=== PATIENT | male | born 1995 | race Caucasian/White ===

== ENCOUNTER 2021-02-13 22:42 | Emergency (ER) | payer MEDICAID, SELFPAY ==
--- NOTE | ~2021-02-13 | XR_ITS ---
EXAMINATION: XR HAND, RIGHT CLINICAL INFORMATION: injury, pain, fifth digit COMPARISON: None TECHNIQUE: PA, lateral, and oblique views of the right hand. FINDINGS: The bones and soft tissues are normal. No fracture. Alignment is anatomic. Joint spaces are maintained. No erosions or soft tissue calcifications. XR/XR hand RT min 3V IMPRESSION: Normal right hand.
[2021-02-13 23:37] VITALS: BP 122/70; PULSE 89; RESP 14; TEMP 36.9; O2SAT 100; BMI 23.8
--- NOTE | 2021-02-14 00:53 | ED_ITS ---
HPI - Extremity Problem General Chief complaint: Extremity Injury, Upper Stated complaint: Wrist pain Time Seen by Provider: 02/14/21 00:18 Source: patient Mode of arrival: ambulatory Limitations: no limitations History of Present Illness HPI Narrative: Patient injured his right 5th finger while playing basketball c jeanne with flexion deformity of distal phalanx no other injuries Related Data Allergies Allergy/AdvReac Type Severity Reaction Status Date / Time No Known Allergies Allergy Verified 02/13/21 23:39 Review of Systems Review of Systems: Yes all other systems are reviewed and are negative COUNT INCLUDES [facility] Social History Social History Advance Directives: No Physical Exam Vital Signs: Vital Signs: Last Vital Signs Temp 98.5 F 02/13/21 23:37 Pulse 89 02/13/21 23:37 Resp 14 02/13/21 23:37 BP 122/70 02/13/21 23:37 Pulse Ox 100 02/13/21 23:37 Body Mass Index 23.8 Const: General: comfortable and no acute distress Extrem: Hand/finger images: 1. Flexion deformity of distal phalanx of right 5th finger no bony tenderness neurovascular intact Procedures Orthopedic Splinting/Casting Injury #1: Side: right Upper Extremity Injury Location: finger (Fifth finger of right hand) Upper Extremity Immobilizer: aluminum form splint MDM - Extremity (Nontraumatic) MDM Narrative Medical decision making narrative: Patient with flexion strain of right 5th fin fidencio secondary to spasm of flexor digitorum superficialis x-ray negative for fracture finger splint applied advised follow-up with PCP Discharge Plan Discharge Clinical Impression: Finger sprain Qualifiers: Encounter type: initial encounter Finger: little finger Sprain of finger site: interphalangeal joint Laterality: right Qualified Code(s): S63.636A - Sprain of interphalangeal joint of right little finger, initial encounter Patient Disposition: Home, Self-Care Instructions: Finger Sprain (ED) Additional Instructions: Wear the splint until finger heals completely Ibuprofen for pain as needed
== END 2021-02-14 01:03 | disposition home or self-care (01) ==
PROVIDERS: Emergency Provider Internal Medicine; PCP Internal Medicine
DX: S63.636A Sprain of interphalangeal joint of right little finger, initial encounter (principal); W21.05XA Struck by basketball, initial encounter; Y93.67 Activity, basketball; Y92.310 Basketball court as the place of occurrence of the external cause; Y99.9 Unspecified external cause status
CPT/HCPCS: 29130; 73130; 99283

== ENCOUNTER 2021-11-27 17:45 | Emergency (ER) | payer MEDICAID, SELFPAY | END 2021-11-27 20:48 | disposition left against medical advice (07) | PROVIDERS: Emergency Provider Emergency Medicine | DX: M54.2 Cervicalgia (principal) ==

== ENCOUNTER 2023-02-28 16:54 | Emergency (ER) | payer MEDICAID, SELFPAY ==
[2023-02-28 17:09] VITALS: BP 121/74; PULSE 90; RESP 18; TEMP 36.7; O2SAT 99; BMI 22.5
--- NOTE | 2023-02-28 17:09 | ED.GENADULT ---
HPI - General Adult General Chief complaint: Wound/Laceration Stated complaint: Cut on left thumb Time Seen by Provider: 02/28/23 18:57 Source: patient Mode of arrival: ambulatory Limitations: no limitations History of Present Illness complaint: abrasion to L thumb Onset (ago): minute(s) (prior to arrival ) Location: left and upper extremity Radiation: non-radiation Severity: mild Quality: dull Pain Consistency: constant Relieving factors: none Exacerbating factors: none Associated symptoms: denies other symptoms Treatments prior to arrival: other (patient irrigated and cleansed the area very well) Related Data Allergies Allergy/AdvReac Type Severity Reaction Status Date / Time No Known Allergies Allergy Verified 02/13/21 23:39 Review of Systems Review of Systems: Constitutional : No Fever, No Chills, Cardiovascular : No Chest Pain, No SOB Respiratory : No Dyspnea Gastrointestinal : No abdominal pain Musculoskeletal : No Joint Swelling Skin : No rash, positive skin laceration Neuro : No Weakness, No Numbness PMFSH Past Medical History Attestation statement: The following information was validated with the patient. Medical History No pertinent past medical history Social History Social History (Updated 02/28/23 @ 19:07 by Lyndsey Blas DO) Patient Tobacco Use Status: Tobacco use Unknown Physical Exam ED Vital Signs: Vital Signs - 24 hr 02/28/23 17:09 Temperature 98.1 F Pulse Rate 90 Respiratory Rate 18 Blood Pressure 121/74 Pulse Oximetry 99 Oxygen Delivery Method Room Air BMI result Body Mass Index 22.5 Appearance: Alert. Oriented X3. No acute distress. Eyes: Pupils equal, round and reactive to light. ENT: Pharynx normal. Neck: Normal inspection. CVS: . Pulses normal. Respiratory: No respiratory distress. Abdomen: atraumatic Skin: Skin warm and dry. Normal skin color. Extremities: L thumb minimal superficial abrasion noted palmar surface across IP joint normal ROM Neuro: Oriented X 3. No motor deficit. No sensory deficit. Course Course Course Narrative: This is an RME: Additional HPI, ROS, PE not included below will be deferred to primary provider. This is a [id number] presenting to the emergency department with a complaint of laceration on left thumb from a flor tool. Unsure last tetanus. Superficial laceration, no active bleeding, not needing any suture repair. But would benefit just from soaking and updated tetanus. Medical Decision Making Medical Decision Making MDM Narrative: 27 yo male no PMH here with c/o abrasion to L thumb by flor stake - no concern for FB, fracture it is very superficial but he will need to update his tetanus. He has no signs of infection and needs no repair it is very superficial Differential Diagnosis Differential Diagnoses: The differential diagnosis associated with the presentation includes abrasion, tetanus exposure. Independent Historian Clinical information obtained from an independent historian. History obtained from or confirmed by: Spouse External Record Review External record reviewed: Inpatient record ED visit Discharge Plan Discharge Clinical Impression: Abrasion Patient Disposition: Home, Self-Care Instructions: Diphtheria/Tetanus Vaccine (By injection), Abrasion (ED) Additional Instructions: return to ED for any worsening symptoms or concerns return for redness, swelling, fevers, yellow drainage. no cleaning dishes until wound is closed, okay to swim in your pool but not ocean, yi or community pool
[2023-02-28] MEDS: Diphth,Pertus(ACell),Tet Adult 0.5 ML SYRINGE IM (19:14)
[2023-02-28 19:32] VITALS: BP 131/78; PULSE 91; RESP 18; O2SAT 100
== END 2023-02-28 19:34 | disposition home or self-care (01) ==
PROVIDERS: Emergency Provider Emergency Medicine
DX: S60.312A Abrasion of left thumb, initial encounter (principal); W45.8XXA Other foreign body or object entering through skin, initial encounter; Y93.9 Activity, unspecified; Y92.9 Unspecified place or not applicable; Y99.9 Unspecified external cause status
CPT/HCPCS: 90471; 90715; 99283; 99284

== ENCOUNTER 2023-10-11 11:54 | Emergency (ER) | payer OTHER, MEDICAID, SELFPAY ==
[2023-10-11 12:02] VITALS: BP 120/76; PULSE 67; RESP 18; TEMP 37; O2SAT 97; BMI 22.5
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
== END 2023-10-11 12:14 | disposition home or self-care (01) ==
LOC: HO.ED 12:09
PROVIDERS: Emergency Provider Emergency Medicine Emergency Medical Services
DX: S39.92XA Unspecified injury of lower back, initial encounter (principal); V63.5XXA Driver of heavy transport vehicle injured in collision with car, pick-up truck or van in traffic accident, initial encounter; Y93.9 Activity, unspecified; Y92.410 Unspecified street and highway as the place of occurrence of the external cause; Y99.8 Other external cause status
CPT/HCPCS: 99282; 99283